=== PATIENT | female | born 1980 | race African-American/Black ===

== ENCOUNTER 2018-07-05 19:42 | Emergency (ER) | payer OTHER ==
[~2018-07-05] VITALS: Ht 154.9 cm; Wt 104.5 kg
[2018-07-05] MEDS ORDERED: ACETAMINOPHEN 500 MG TABLET PO ONE (21:15)
[2018-07-05] MEDS ORDERED: IBUPROFEN 800 MG TABLET PO ONE (21:45)
[2018-07-05 22:26] LABS: RAPID GROUP A STREP NEGATIVE (NEGATIVE)
[2018-07-05 23:00] LABS: INFLUENZA TYPE A NEGATIVE FOR TYPE A (NEGATIVE); INFLUENZA TYPE B NEGATIVE FOR TYPE B (NEGATIVE)
[2018-07-05] MEDS ORDERED: DEXAMETHASONE SOD PHOS 4 MG/ML 5 ML VIAL IM ONE (23:00)
[2018-07-06 02:36] VITALS: BP 121/56
== END 2018-07-06 01:00 | disposition home or self-care (01) ==
LOC: EMS 19:46
DX: J02.0 Streptococcal pharyngitis (principal); F41.9 Anxiety disorder, unspecified; F32.9 Major depressive disorder, single episode, unspecified; F17.210 Nicotine dependence, cigarettes, uncomplicated; F12.90 Cannabis use, unspecified, uncomplicated; Z90.49 Acquired absence of other specified parts of digestive tract; Z86.711 Personal history of pulmonary embolism
CPT/HCPCS: 87430; 87804; 96372; 99283; J1100

== ENCOUNTER 2020-06-13 09:45 | Observation (INO) | payer OTHER ==
[2020-06-13 10:25] VITALS: BP 105/66
[2020-06-13] MEDS ORDERED: ASPI-1227 PO (12:35)
[2020-06-13] MEDS ORDERED: PREN-217 PO (12:35)
== END 2020-06-13 12:25 | disposition home or self-care (01) ==
LOC: 4S 09:45
PROVIDERS: ADMIT Student in an Organized Health Care Education/Training Program; ATTEND Student in an Organized Health Care Education/Training Program
DX: O09.522 Supervision of elderly multigravida, second trimester (principal); Z3A.19 19 weeks gestation of pregnancy
CPT/HCPCS: 93971; 99219